=== PATIENT | male | born 1995 | race African-American/Black ===

== ENCOUNTER 2017-03-05 12:59 | Emergency (ER) | payer SELFPAY ==
[~2017-03-05] VITALS: Ht 185.4 cm; Wt 63.5 kg
[~2017-03-05 12:59] MED LIST: NAPR500T PO; PROAIR HFA8.5 GM INH
[2017-03-05 13:10] VITALS: BP 112/66
[2017-03-05] MEDS ORDERED: AZIT250T PO (13:24)
[2017-03-05] MEDS ORDERED: PROAIR HFA8.5 GM INH (13:24)
[2017-03-05] MEDS ORDERED: PRED20TA PO (13:24)
--- NOTE | 2017-03-05 13:24 | PHYS DOC ---
Past Medical History Past Medical History: No Pertinent History Past Surgical History: No Surgical History Alcohol Use: Occasionally Drug Use: Marijuana, Other Adult General Chief Complaint Chief Complaint: COUGH HPI HPI Patient is a 21 year old male presents emergency Department stating he's had a cough and some chest discomfort when taking a deep breath in next healing. He states this is been going on for the last 3 days. He states he has not taken anything for the pain and discomfort. He states he does have a cough this nonproductive. He also states that he has a history of smoking. He states approximately 2 days ago he had a fever at home although is afebrile this time. Patient denies any nasal drainage or discharge denies any sinus pressure. Review of Systems Review of Systems Constitutional: hx fever Eyes: Denies change in visual acuity, redness, or eye pain [] HENT: Denies nasal congestion or sore throat [] Respiratory: cough with shortness of breath [] Cardiovascular: No additional information not addressed in HPI [] GI: Denies abdominal pain, nausea, vomiting, bloody stools or diarrhea [] : Denies dysuria or hematuria [] Musculoskeletal: Denies back pain or joint pain [] Integument: Denies rash or skin lesions [] Neurologic: Denies headache, focal weakness or sensory changes [] Endocrine: Denies polyuria or polydipsia [] Allergies Allergies Allergies Coded Allergies Type Severity Reaction Last Updated Verified No Known Drug Allergies 02/28/15 No Physical Exam Physical Exam Constitutional: Well developed, well nourished, no acute distress, non-toxic appearance. [] HENT: Normocephalic, atraumatic, bilateral external ears normal, oropharynx moist, no oral exudates, nose normal. Bilateral tympanic membranes appear to be normal. Throat with redness no erythematous no exudate noted. Eyes: PERRLA, EOMI, conjunctiva normal, no discharge. [] Neck: Normal range of motion, no tenderness, supple, no stridor. [] Cardiovascular:Heart rate regular rhythm, no murmur [] Lungs & Thorax: Bilateral breath sounds clear to auscultation [] Skin: Warm, dry, no erythema, no rash. [] Back: No tenderness Extremities: No tenderness, no cyanosis, no clubbing, ROM intact, no edema. [] Neurologic: Alert and oriented X 3, normal motor function, normal sensory function, no focal deficits noted. [] Psychologic: Affect normal, judgement normal, mood normal. [] EKG EKG [] Radiology/Procedures Radiology/Procedures [] Course & Med Decision Making Course & Med Decision Making Pertinent Labs and Imaging studies reviewed. (See chart for details) Patient will be discharged home in stable condition. He'll be provided with Zithromax, prednisone and an albuterol inhaler prescription. Recommended patient stop smoking. Patient will be discharged home in stable condition signs and symptoms to return back to emergency department as been provided. Patient agrees with discharge instructions treatment regimens and follow-up recommendations. [] Dragon Disclaimer Dragon Disclaimer This electronic medical record was generated, in whole or in part, using a voice recognition dictation system. Departure Departure Impression: Primary Impression: Bronchitis Disposition: HOME, SELF-CARE Condition: STABLE Referrals: NO PCP (PCP) Patient Instructions: Acute Bronchitis, [id number], Smoking Cessation Additional Instructions: Activity as tolerated Medication as prescribed Tylenol or Ibuprofen for fever, chills or generalized boy aches and discomfort Warm moist packs to the chest wall area Stop smoking Followup with primary care provider in 3-5 days Return to emergency department as needed for signs and symptoms that become worse. Scripts Azithromycin (ZITHROMAX) 250 Mg Tablet 250 MG PO DAILY for ANTI-BIOTIC, #6 TAB 0 Refills Take 2 tablets today then 1 tablet daily until gone Prov: RIGOBERTO VASQUEZ APRN 03/05/17 Albuterol Sulfate (PROAIR HFA INHALER) 8.5 Gm Hfa.aer.ad 1 PUFF INH PRN Q6HRS Y for SHORTNESS OF BREATH, #1 INHALER 0 Refills Prov: RIGOBERTO VASQUEZ APRN 03/05/17 Prednisone (PREDNISONE) 20 Mg Tablet 40 MG PO DAILY for 7 Days, #14 TAB Prov: RIGOBERTO VASQUEZ APRN 03/05/17 RIGOBERTO VASQUEZ APRN Mar 05, 2017 13:24
== END 2017-03-05 13:36 | disposition home or self-care (01) ==
LOC: ER 12:59
DX: J40 Bronchitis, not specified as acute or chronic (principal); R07.89 Other chest pain; F12.10 Cannabis abuse, uncomplicated; F17.200 Nicotine dependence, unspecified, uncomplicated
CPT/HCPCS: 99283

== ENCOUNTER 2017-03-12 03:56 | Emergency (ER) | payer SELFPAY ==
[~2017-03-12] VITALS: Ht 182.9 cm; Wt 63.5 kg
[~2017-03-12 03:56] MED LIST changes: +AZIT250T PO; +PRED20TA PO
[2017-03-12 04:05] VITALS: BP 141/86
--- NOTE | 2017-03-12 04:56 | PHYS DOC ---
Past Medical History Past Medical History: Bronchitis Past Surgical History: No Surgical History Alcohol Use: None Drug Use: None Adult General Chief Complaint Chief Complaint: SHORTNESS OF BREATH HPI HPI Patient is a 21 year old gentleman presents to the ER today secondary to coughing. Patient was recently diagnosed with bronchitis finished a full course of Zithromax and he reports he still coughing. Patient has no fevers shakes chills. Patient reports he is short of breath with exertion. Patient reports some hemoptysis. Patient has a nausea vomiting diarrhea or abdominal pain. Patient has no past medical history. No history of hypertension diabetes liver longer kidney problems. Patient had no surgeries. Patient does smoke occasionally drinks and no drugs. Exam was unremarkable. Lungs were clear no wheezing rales or rhonchi. Oropharynx is clear without any exudates. His TMs were clear without any erythema. Chest x-ray was clear no infiltrates or effusions. Assessment and plan Plan 21-year-old gentleman with recent diagnosis of bronchitis status post full course of Zithromax still complaining of shortness of breath and cough. Patient' s chest x-rays unremarkable. I did had a long discussion with the mother and patient regarding the progress and course of bronchitis. I discussed with him that he likely will continue to cough even after the antibiotics is resolved if he did have a bacterial pneumonia. Patient does not have any wheezing. I don't think the patient will benefit from any further courses of antibiotics or albuterol. Charged home in stable condition with instructions to follow-up with his PCP or clinic for reevaluation if need be. I discussed with the patient cessation of tobacco. Review of Systems Review of Systems Constitutional: Denies fever or chills [] Eyes: Denies change in visual acuity, redness, or eye pain [] All other review systems are negative except as documented in the history of present illness portion. Allergies Allergies Allergies Coded Allergies Type Severity Reaction Last Updated Verified No Known Drug Allergies 02/28/15 No Physical Exam Physical Exam Constitutional: Well developed, well nourished, no acute distress, non-toxic appearance. [] HENT: Normocephalic, atraumatic, bilateral external ears normal, oropharynx moist, no oral exudates, nose normal. [] Eyes: PERRLA, EOMI, conjunctiva normal, no discharge. [] Neck: Normal range of motion, no tenderness, supple, no stridor. [] Cardiovascular:Heart rate regular rhythm, no murmur [] Lungs & Thorax: Bilateral breath sounds clear to auscultation [] Abdomen: Bowel sounds normal, soft, no tenderness, no masses, no pulsatile masses. [] Skin: Warm, dry, no erythema, no rash. [] Back: No tenderness, no CVA tenderness. [] Extremities: No tenderness, no cyanosis, no clubbing, ROM intact, no edema. [] Neurologic: Alert and oriented X 3, normal motor function, normal sensory function, no focal deficits noted. [] Psychologic: Affect normal, judgement normal, mood normal. [] Current Patient Data Vital Signs Vital Signs Date Time Temp Pulse Resp B/P (MAP) Pulse Ox O2 Delivery O2 Flow Rate FiO2 03/12/17 04:05 98.3 60 18 141/86 (104) 98 Room Air 98.3 EKG EKG [] Radiology/Procedures Radiology/Procedures [] Course & Med Decision Making Course & Med Decision Making Pertinent Labs and Imaging studies reviewed. (See chart for details) [] Dragon Disclaimer Dragon Disclaimer This electronic medical record was generated, in whole or in part, using a voice recognition dictation system. Departure Departure Impression: Primary Impression: Cough Disposition: 01 HOME, SELF-CARE Condition: IMPROVED Referrals: NO PCP (PCP) Patient Instructions: Cough, Adult, Smoking Cessation LAUREN SENA MD Mar 12, 2017 04:56
--- NOTE | 2017-03-12 07:34 | RAD ---
EXAM: Chest 2 views. HISTORY: Cough. COMPARISON: None. FINDINGS: Frontal and lateral views of the chest are obtained. A mild perihilar left upper lobe infiltrate is suspected on the left. There is no pneumothorax or pleural effusion. The heart is not enlarged. IMPRESSION: 1. Suspect a mild left upper lobe infiltrate. Correlate for atypical pneumonia.
== END 2017-03-12 05:00 | disposition home or self-care (01) ==
LOC: ER 03:56
DX: R05 Cough (principal); R06.02 Shortness of breath; R04.2 Hemoptysis; F17.200 Nicotine dependence, unspecified, uncomplicated
CPT/HCPCS: 71020; 99284-25

== ENCOUNTER 2018-01-13 07:54 | Emergency (ER) | payer SELFPAY ==
[2018-01-13] MEDS: IV NORMAL SALINE 1000ML BAG 1,000 ML IV (08:26)
[2018-01-13] MEDS: MORPHINE SULFATE 10 MG/ML VIAL. IV ×2 (08:26→10:35)
[2018-01-13] MEDS: ONDANSETRON PF 4 MG/2 ML VIAL. IV (08:26)
[2018-01-13] MEDS: KETOROLAC 30 MG/ML INJ. IV (08:27)
[2018-01-13 08:28] LABS: BILIRUBIN,URINE NEGATIVE (NEG); CLARITY,URINE CLEAR; COLOR,URINE YELLOW; GLUCOSE,URINE NEGATIVE (NEG); NITRITE,URINE NEGATIVE (NEG); PROTEIN,URINE NEGATIVE (NEG-TRACE); UROBILINOGEN,URINE 0.2 mg/dL (0.2 mg/dL)
[2018-01-13 08:34] LABS: ADD MAN DIFF? NO
[2018-01-13 08:35] LABS: AMPHETAMINE/METHAMPHETAMINE NEG (NEG); BARBITURATES NEG (NEG); BENZODIAZEPINES NEG (NEG); CANNABINOIDS POS (NEG); COCAINE NEG (NEG); ETHANOL, URINE NEG (NEG); METHADONE NEG (NEG); OPIATES NEG (NEG); PHENCYCLIDINE NEG (NEG)
[2018-01-13 08:36] LABS: BASO # 0.1 x10^3/uL (0.0-0.2); BASO % 1 % (0-3); EOS # 0.5 x10^3/uL (0.0-0.7); EOS % 9 % (0-3); HEMATOCRIT 42.8 % (39.0-53.0); HEMOGLOBIN 13.5 g/dL (13.0-17.5); LYMPH # 2.3 x10^3/uL (1.0-4.8); LYMPH % 43 % (24-48); MEAN CORPUSCULAR HEMOGLOBIN 24 pg (25-35); MEAN CORPUSCULAR HGB CONC 31 g/dL (31-37); MEAN CORPUSCULAR VOLUME 77 fL (79-100); MONO # 0.5 x10^3/uL (0.0-1.1); MONO % 10 % (0-9); NEUT # 1.9 x10^3uL (1.8-7.7); NEUT % 37 % (31-73); PLATELET COUNT 148 x10^3/uL (140-400); WHITE BLOOD COUNT 5.3 x10^3/uL (4.0-11.0)
[2018-01-13 08:45] LABS: RBC,URINE >40 /HPF (0-2)
[2018-01-13 08:46] LABS: ANION GAP 6 (6-14); BACTERIA,URINE FEW /HPF (0-FEW); BLOOD UREA NITROGEN 12 mg/dL (8-26); BUN/CREATININE RATIO 11 (6-20); CALCIUM 8.9 mg/dL (8.5-10.1); CARBON DIOXIDE 30 mmol/L (21-32); CHLORIDE 105 mmol/L (98-107); CREATININE 1.1 mg/dL (0.7-1.3); GFR 101.3; GLUCOSE 110 mg/dL (70-99); POTASSIUM 3.8 mmol/L (3.5-5.1); SODIUM 141 mmol/L (136-145); WBC,URINE OCC /HPF (0-4)
[2018-01-13 08:47] LABS: ETHANOL < 10 mg/dL (0-10)
[2018-01-13 08:53] LABS: ALBUMIN 3.9 g/dL (3.4-5.0); ALK PHOS 114 U/L (46-116); ALT (SGPT) 17 U/L (16-63); AST (SGOT) 23 U/L (15-37); LIPASE 158 U/L (73-393); TOTAL BILIRUBIN 0.5 mg/dL (0.2-1.0); TOTAL PROTEIN 7.7 g/dL (6.4-8.2)
[2018-01-13 09:37] LABS: FECAL OB PT POSITIVE (NEG); NEG OBC FOB NEG; POS OBC FOB POS
[2018-01-13] MEDS: TAMSULOSIN 0.4 MG CAP.ER.24H. PO (10:34)
[2018-01-13] MEDS: oxyCODONE/APAP 5/325 1 TAB TABLET PO (11:09)
== END 2018-01-13 11:18 | disposition home or self-care (01) ==
LOC: ER 07:54
DX: N13.2 Hydronephrosis with renal and ureteral calculous obstruction (principal); F12.10 Cannabis abuse, uncomplicated
CPT/HCPCS: 36415; 74176; 80053; 80307; 81001; 82274; 83690; 85025; 87491; 87591; 96361; 96374; 96375; 96376; 99285-25; G0480; J1885; J2270; J2405; J7030

== ENCOUNTER 2018-05-02 09:17 | Emergency (ER) | payer SELFPAY | END 2018-05-02 10:50 | disposition home or self-care (01) | LOC: ER 10:50 | DX: B86 Scabies (principal) | CPT/HCPCS: 99282 ==

== ENCOUNTER 2019-09-13 07:42 | Emergency (ER) | payer SELFPAY ==
[~2019-09-13] VITALS: Ht 185.4 cm; Wt 63.5 kg
[~2019-09-13 07:42] MED LIST changes: +ALBU2.5V8 INH; +CIPR500T94 PO; +NAPR-514 PO; +NAPR-683 PO; -NAPR500T PO; +ONDA4TAB10 SL; +OXYC1TAB15 PO; +PERM60CR12 TP; -PROAIR HFA8.5 GM INH; +TAMS0.4C97 PO
[2019-09-13 07:50] VITALS: BP 123/59
[2019-09-13] MEDS ORDERED: PENI500T PO (08:04)
[2019-09-13] MEDS ORDERED: ACET-704 PO (08:04)
[2019-09-13] MEDS ORDERED: LIDO15SO2 TOP (08:04)
--- NOTE | 2019-09-13 08:05 | PHYS DOC ---
Past Medical History Past Medical History: No Pertinent History, Bronchitis Past Surgical History: No Surgical History Alcohol Use: None Drug Use: Marijuana Adult General Chief Complaint Chief Complaint: DENTAL PROBLEM HPI HPI Patient is a 23-year-old male who presents with complaint of right lower dental pain that has been present for approximately week. Patient has been trying to get in to see the dentist but he has not been able to. Patient states the pain is gotten a lot worse over the last 24 hours and he stayed up most of the night because of the pain.[] Review of Systems Review of Systems Constitutional: Denies fever or chills [] HENT: Positive dental pain[] Respiratory: Complains of cough without shortness of breath [] Cardiovascular: No additional information not addressed in HPI [] Allergies Allergies Allergies Coded Allergies Type Severity Reaction Last Updated Verified No Known Drug Allergies 02/28/15 No Physical Exam Physical Exam Constitutional: Well developed, well nourished, no acute distress, non-toxic appearance. [] HENT: Normocephalic, atraumatic, dentition demonstrates caries, predominantly on the right side with the right sided lower premolar with significant caries and erosion into the pulp. [] Cardiovascular:Heart rate regular rhythm, no murmur [] Lungs & Thorax: Bilateral breath sounds clear to auscultation [] Current Patient Data Vital Signs Vital Signs Date Time Temp Pulse Resp B/P (MAP) Pulse Ox O2 Delivery O2 Flow Rate FiO2 09/13/19 07:50 97.4 74 16 123/59 (80) 97 Room Air 97.4 EKG EKG [] Radiology/Procedures Radiology/Procedures [] Course & Med Decision Making Course & Med Decision Making Pertinent Labs and Imaging studies reviewed. (See chart for details) [] Dragon Disclaimer Dragon Disclaimer This electronic medical record was generated, in whole or in part, using a voice recognition dictation system. Departure Departure Impression: Primary Impression: Pain due to dental caries Disposition: HOME, SELF-CARE Condition: STABLE Referrals: NO PCP (PCP) Patient Instructions: Dental Caries, Dental Pain Scripts Lidocaine HCl (Lidocaine HCl Viscous) 15 Ml Solution 1 ML TOP Q2HR PRN for tooth pain, #100 ML Prov: LIZ RUEDA Jr. DO 09/13/19 Penicillin V Potassium (PENICILLIN V POTASSIUM) 500 Mg Tablet 1 TAB PO QID, #40 TAB Prov: LIZ RUEDA Jr. DO 09/13/19 Acetaminophen With Codeine (TYLENOL WITH CODEINE #3 TABLET) 1 Each Tablet 1-2 TAB PO PRN Q4-6HRS PRN for pain MDD 6 Tablet(s), #15 TAB 0 Refills Prov: LIZ RUEDA Jr. DO 09/13/19 LIZ RUEDA Jr. DO Sep 13, 2019 08:05
== END 2019-09-13 08:10 | disposition home or self-care (01) ==
LOC: ER 07:42
DX: K02.9 Dental caries, unspecified (principal); K08.89 Other specified disorders of teeth and supporting structures; F12.90 Cannabis use, unspecified, uncomplicated
CPT/HCPCS: 99283

== ENCOUNTER 2019-09-27 09:20 | Emergency (ER) | payer SELFPAY ==
[~2019-09-27] VITALS: Ht 185.4 cm; Wt 63.5 kg
[~2019-09-27 09:20] MED LIST changes: +ACET-704 PO; +LIDO15SO2 TOP; +PENI500T PO
[2019-09-27 09:41] VITALS: BP 118/59
--- NOTE | 2019-09-27 09:48 | PHYS DOC ---
Past Medical History Past Medical History: No Pertinent History, Bronchitis (RIGOBERTO REYES APRN) Past Surgical History: No Surgical History (RIGOBERTO REYES APRN) Alcohol Use: None Drug Use: Marijuana (RIGOBERTO REYES APRN) Adult General Chief Complaint Chief Complaint: COUGH HPI HPI Patient is a 23 year old male who presents with cough 3 weeks. Pain in the chest with coughing or taking deep breath. Patient has been on penicillin and another antibiotic of which she can't remember for dental infection for the last 2 weeks. Patient states when he is up and walking he is getting short of breath. Patient's mother is adamant that we do an EKG because his grandmother and small cousin and uncle all had heart attacks. I told mother that is very unlikely does have any heart problems but mother is very adamant that we do this. Patient rates his pain a 7 out of 10 when he is coughing. He does have a temp of 100.5. He does have history of bronchitis and smoking marijuana. Patient states he is still taking antibiotics at this time from the dentist. (RIGOBERTO REYES APRN) Review of Systems Review of Systems Constitutional: fever or chills [] HENT: nasal congestion or denies sore throat [] Respiratory: cough or shortness of breath [] All other systems were reviewed and found to be within normal limits, except as documented in this note. (RIGOBERTO REYES APRN) Current Medications Current Medications Current Medications Medications (Trade) Dose Ordered Sig/Christy Start Time Stop Time Status Last Admin Dose Admin Acetaminophen (Tylenol) 650 mg 1X ONCE 09/27/19 10:00 09/27/19 10:01 DC 09/27/19 10:16 650 MG Prednisone (Prednisone) 50 mg 1X ONCE 09/27/19 10:00 09/27/19 10:01 DC 09/27/19 10:15 50 MG (JOSÉ MANUEL CARTWRIGHT DO) Allergies Allergies Allergies Coded Allergies Type Severity Reaction Last Updated Verified No Known Drug Allergies 02/28/15 No (JOSÉ MANUEL CARTWRIGHT DO) Physical Exam Physical Exam Constitutional: Well developed, well nourished, no acute distress, non-toxic appearance. [] HENT: Normocephalic, atraumatic, bilateral external ears normal, oropharynx moist, no oral exudates, nose normal. Throat silas without exudates. [] Eyes: PERRLA, EOMI, conjunctiva normal, no discharge. [] Neck: Normal range of motion, no tenderness, supple, no stridor. [] Cardiovascular:Heart rate regular rhythm, no murmur [] Lungs & Thorax: Bilateral breath sounds clear to auscultation [] Abdomen: Bowel sounds normal, soft, no tenderness, no masses, no pulsatile masses. [] Skin: Warm, dry, no erythema, no rash. [] Back: No tenderness, no CVA tenderness. [] Extremities: No tenderness, no cyanosis, no clubbing, ROM intact, no edema. [] Neurologic: Alert and oriented X 3, normal motor function, normal sensory function, no focal deficits noted. [] Psychologic: Affect normal, judgement normal, mood normal. [] (RIGOBERTO REYES APRN) Current Patient Data Vital Signs Vital Signs Date Time Temp Pulse Resp B/P (MAP) Pulse Ox O2 Delivery O2 Flow Rate FiO2 09/27/19 09:41 100.5 79 16 118/59 (78) 100 Room Air 100.5 (JOSÉ MANUEL CARTWRIGHT DO) Lab Values Laboratory Tests Test 09/27/19 09:37 Influenza Type A Antigen Negative (NEGATIVE) Influenza Type B Antigen Negative (NEGATIVE) (JOSÉ MANUEL CARTWRIGHT DO) Lab Values Laboratory Tests Test 09/27/19 09:37 Influenza Type A Antigen Negative (NEGATIVE) Influenza Type B Antigen Negative (NEGATIVE) (RIGOBERTO REYES APRN) EKG EKG Sinus Rhythm with RBBB. No STEMI[] Interpretation Time: [address] Cartwright (RIGOBERTO REYES APRN) Radiology/Procedures Radiology/Procedures [] (RIGOBERTO REYES APRN) Impressions: [facility] [address] [place] [address] IMAGING REPORT Signed PATIENT: MIKE BARNARD ACCOUNT: [id number] : 1995 LOCATION: ER AGE: 23 SEX: M EXAM STATUS: REG ER ORD. PHYSICIAN: RIGOBERTO REYES APRN REASON: cough, SOA x1 month PROCEDURE: CHEST PA & LATERAL CHEST PA LATERAL History: Cough, shortness of breath for one month. FINDINGS: The cardiomediastinal silhouette is not enlarged. No evidence of pneumothorax, pleural effusion or focal airspace opacity. Bones appear intact. IMPRESSION: No evidence of consolidating infiltrate. Electronically signed by: José Manuel Hall MD (09/27/2019 10:08 AM) [facility] DICTATED and SIGNED BY: JOSÉ MANUEL HALL MD DATE: 09/27/19 1008 (RIGOBERTO REYES APRN) Course & Med Decision Making Course & Med Decision Making Lungs are clear to auscultation all lobes. Vital Signs are within normal limits except he is febrile. Patient states he only been taking ibuprofen for his symptoms. Speaks in full clear sentences. Skin pink warm and dry. Mucous membranes moist. Ambulatory with a steady gait. No extremity edema. Patient has not followed up with his primary care physician. Patient is educated and mother is educated that patient needs to follow up with primary care doctor and if she wants further testing for his heart that she needs to follow-up with his primary care doctor. Patient states that he will become short of air when he is up and moving since his cough has began. Alert and oriented. Patient states he will get dizzy at times when she when he is coughing. Patient denies nausea, vomiting, abdominal pain, headache, syncope, blurred vision or visual changes, numbness or tingling, palpitations. Patient states that he does have nasal congestion that runs down the back of his throat. Patient is educated that is running down the back of his throat causing the coughing problem himself up at night also to help this. PERC negative. (RIGOBERTO REYES APRN) Dragon Disclaimer Dragon Disclaimer This electronic medical record was generated, in whole or in part, using a voice recognition dictation system. (RIGOBERTO REYES APRN) Departure Departure Impression: Primary Impression: Cough Disposition: 01 HOME, SELF-CARE Condition: STABLE Referrals: NO PCP (PCP) Patient Instructions: Cough, Adult Additional Instructions: Take all medications as prescribed. Follow-up with your primary care provider. Scripts Albuterol Sulfate (PROAIR HFA INHALER) 8.5 Gm Hfa.aer.ad 1 PUFF INH PRN Q6HRS PRN for SHORTNESS OF BREATH, #1 INHALER 0 Refills Prov: KRAIGRIGOBERTOPATTIE Aaron APRN 09/27/19 Benzonatate (TESSALON PERLE) 100 Mg Capsule 1 CAP PO TID, #30 CAP Prov: RIGOBERTO REYES APRN 09/27/19 Methylprednisolone (MEDROL) 4 Mg Tab.ds.pk 1 PKG PO UD, #1 PKG Prov: RIGOBERTO REYES APRN 09/27/19 Attending Signature Attending Signature I have reviewed the PA/BACK END DEVELOPER's note and plan of care. I was available for consultation as needed during the patient's visit in the emergency department. I agree with the clinical impression, plan, and disposition. (JOSÉ MANUEL CARTWRIGHT DO) RIGOBERTO REYES APRN Sep 27, 2019 09:48 JOSÉ MANUEL CARTWRIGHT DO Sep 28, 2019 07:47
[2019-09-27] MEDS ORDERED: ACETAMINOPHEN 325 MG TABLET. PO ONE (10:00)
[2019-09-27] MEDS ORDERED: predniSONE 10 MG TABLET PO ONE (10:00)
[2019-09-27 10:01] LABS: INFLUENZA A PATIENT NEGATIVE (NEGATIVE); INFLUENZA B PATIENT NEGATIVE (NEGATIVE)
--- NOTE | 2019-09-27 10:11 | RAD ---
CHEST PA LATERAL History: Cough, shortness of breath for one month. FINDINGS: The cardiomediastinal silhouette is not enlarged. No evidence of pneumothorax, pleural effusion or focal airspace opacity. Bones appear intact. IMPRESSION: No evidence of consolidating infiltrate. Electronically signed by: Jsoé Manuel Hall MD (09/27/2019 10:08 AM) [facility]
[2019-09-27] MEDS ORDERED: METH4TAB2 PO (10:15)
[2019-09-27] MEDS ORDERED: ALBU2.5V8 INH (10:15)
[2019-09-27] MEDS ORDERED: BENZ100C PO (10:15)
--- NOTE | 2019-09-28 07:36 | EKG ---
[facility] [address] [place] [address] Test Date: 2019-09-27 Test Time: 09:50:25 Pat Name: MIKE BARNARD Department: Room: Gender: M Clinical Staff Rn: : 1995 Requested By: RIGOBERTO REYES Order Number: [id number] Reading MD: Measurements Intervals Nora Rate: 71 P: 49 GA: 232 QRS: 79 QRSD: 94 T: 62 QT: 360 QTc: 396 Interpretive Statements SINUS RHYTHM PROLONGED GA INTERVAL S1,S2,S3 PATTERN INCOMPLETE RIGHT BUNDLE BRANCH BLOCK ABNORMAL ECG RI6.01 No previous ECG available for comparison
== END 2019-09-27 10:21 | disposition home or self-care (01) ==
LOC: ER 09:20
DX: R05 Cough (principal); R06.02 Shortness of breath; R07.89 Other chest pain; J42 Unspecified chronic bronchitis; F12.90 Cannabis use, unspecified, uncomplicated; Z79.899 Other long term (current) drug therapy
CPT/HCPCS: 71046; 87804; 93005; 99285; J7512

== ENCOUNTER 2019-10-11 21:19 | Emergency (ER) | payer BC ==
[~2019-10-11] VITALS: Ht 185.4 cm; Wt 63.5 kg
[~2019-10-11 21:19] MED LIST changes: +BENZ100C PO; +METH4TAB2 PO
--- NOTE | 2019-10-11 22:20 | PHYS DOC ---
Past Medical History Past Medical History: No Pertinent History, Bronchitis Past Surgical History: No Surgical History Alcohol Use: None Drug Use: Marijuana Adult General Chief Complaint Chief Complaint: MULTIPLE COMPLAINTS HPI HPI 23-year-old male presents to the emergency department multiple complaints including shortness of breath, chest pain and decreased level oxygen. Family at bedside states they've been playing drinking games prior to his arrival. Patient is clearly intoxicated. Sleeping on examination however will arouse to painful stimuli. Family states he's had recent antibiotic therapy secondary to concern for possible infection, he does have underlying history of asthma as well as family history of heart disease. Patient unable to provide any particular information with regards to why he is here at this time information is obtained from patient's family. All other ROS negative unless documented in HPI Review of Systems Review of Systems See Above Current Medications Current Medications Current Medications Medications (Trade) Dose Ordered Sig/Christy Start Time Stop Time Status Last Admin Dose Admin Sodium Chloride 1,000 ml @ 1,000 mls/hr 1X ONCE 10/11/19 23:15 10/12/19 00:14 10/11/19 23:15 1,000 MLS/HR Allergies Allergies Allergies Coded Allergies Type Severity Reaction Last Updated Verified No Known Drug Allergies 02/28/15 No Physical Exam Physical Exam See Above Constitutional: Well developed, well nourished, no acute distress. [] HENT: Normocephalic, atraumatic, bilateral external ears normal, oropharynx moist, no oral exudates, nose normal. [] Eyes: PERRLA - slow to react, EOMI, conjunctiva normal, no discharge. [] Neck: Normal range of motion, no tenderness, supple, no stridor. [] Cardiovascular:Heart rate regular rhythm, no murmur [] Lungs & Thorax: Bilateral breath sounds clear to auscultation [] Abdomen: Bowel sounds normal, soft, no tenderness, no masses, no pulsatile masses. [] Skin: Warm, dry, no erythema, no rash. [] Back: No tenderness, no CVA tenderness. [] Extremities: No tenderness, no cyanosis, no clubbing, ROM intact, no edema. [] Neurologic: Altered mental status, no focal deficits noted. [] Psychologic: Affect normal, judgement normal, mood normal. [] Current Patient Data Vital Signs Vital Signs Date Time Temp Pulse Resp B/P (MAP) Pulse Ox O2 Delivery O2 Flow Rate FiO2 10/11/19 23:03 60 18 91/50 (64) 96 Room Air 10/11/19 21:46 97.3 97.3 Lab Values Laboratory Tests Test 10/11/19 22:31 10/11/19 22:55 10/11/19 23:48 O2 Saturation 98 % (92-99) Arterial Blood pH 7.45 (7.35-7.45) Arterial Blood pCO2 at Patient Temp 35 mmHg (35-46) Arterial Blood pO2 at Patient Temp 106 mmHg (85-108) Arterial Blood HCO3 23 mmol/L (21-28) Arterial Blood Base Excess 0 mmol/L (-3-3) FiO2 21 White Blood Count 4.5 x10^3/uL (4.0-11.0) Red Blood Count 4.91 x10^6/uL (4.30-5.70) Hemoglobin 11.7 g/dL (13.0-17.5) L Hematocrit 36.0 % (39.0-53.0) L Mean Corpuscular Volume 73 fL (79-100) L Mean Corpuscular Hemoglobin 24 pg (25-35) L Mean Corpuscular Hemoglobin Concent 33 g/dL (31-37) Red Cell Distribution Width 15.9 % (11.5-14.5) H Platelet Count 170 x10^3/uL (140-400) Neutrophils (%) (Auto) 32 % (31-73) Lymphocytes (%) (Auto) 59 % (24-48) H Monocytes (%) (Auto) 6 % (0-9) Eosinophils (%) (Auto) 3 % (0-3) Basophils (%) (Auto) 1 % (0-3) Neutrophils # (Auto) 1.4 x10^3/uL (1.8-7.7) L Lymphocytes # (Auto) 2.7 x10^3/uL (1.0-4.8) Monocytes # (Auto) 0.3 x10^3/uL (0.0-1.1) Eosinophils # (Auto) 0.1 x10^3/uL (0.0-0.7) Basophils # (Auto) 0.0 x10^3/uL (0.0-0.2) Segmented Neutrophils % 32 % (35-66) L Band Neutrophils % 1 % (0-9) Lymphocytes % 57 % (24-48) H Monocytes % 7 % (0-10) Eosinophils % 3 % (0-5) Platelet Estimate Adequate (ADEQUATE) Hypochromasia Slight Microcytosis Mod Ovalocytes Few Schistocytes Few D-Dimer (Dawn) 0.31 ug/mlFEU (0.00-0.50) Sodium Level 143 mmol/L (136-145) Potassium Level 3.1 mmol/L (3.5-5.1) L Chloride Level 106 mmol/L (98-107) Carbon Dioxide Level 26 mmol/L (21-32) Anion Gap 11 (6-14) Blood Urea Nitrogen 13 mg/dL (8-26) Creatinine 0.8 mg/dL (0.7-1.3) Estimated GFR (Cockcroft-Gault) 145.0 BUN/Creatinine Ratio 16 (6-20) Glucose Level 112 mg/dL (70-99) H Calcium Level 8.6 mg/dL (8.5-10.1) Total Bilirubin 0.5 mg/dL (0.2-1.0) Aspartate Amino Transferase (AST) 24 U/L (15-37) Alanine Aminotransferase (ALT) 11 U/L (16-63) L Alkaline Phosphatase 104 U/L (46-116) Ammonia 55 mcmol/L (11-34) H Troponin I Quantitative < 0.017 ng/mL (0.000-0.055) Total Protein 6.9 g/dL (6.4-8.2) Albumin 3.8 g/dL (3.4-5.0) Albumin/Globulin Ratio 1.2 (1.0-1.7) Salicylates Level < 2.8 mg/dL (2.8-20.0) L Salicylate Last Dose Date Salicylate Last Dose Time Acetaminophen Level < 2 mcg/ml (10-30) L Acetaminophen Last Dose Date Acetaminophen Last Dose Time Ethyl Alcohol Level 137 mg/dL (0-10) H Urine Collection Type Unknown Urine Color Yellow Urine Clarity Cloudy Urine pH 7.0 Urine Specific [place] 1.010 Urine Protein Negative mg/dL (NEG-TRACE) Urine Glucose (UA) Negative mg/dL (NEG) Urine Ketones (Stick) Negative mg/dL (NEG) Urine Blood Negative (NEG) Urine Nitrite Negative (NEG) Urine Bilirubin Negative (NEG) Urine Urobilinogen Dipstick 0.2 mg/dL (0.2 mg/dL) Urine Leukocyte Esterase Negative (NEG) Urine RBC 1-2 /HPF (0-2) Urine WBC Occ /HPF (0-4) Urine Squamous Epithelial Cells Occ /LPF Urine Bacteria 0 /HPF (0-FEW) Urine Mucus Slight /LPF Urine Opiates Screen Neg (NEG) Urine Methadone Screen Neg (NEG) Urine Barbiturates Neg (NEG) Urine Phencyclidine Screen Neg (NEG) Urine Amphetamine/Methamphetamine Neg (NEG) Urine Benzodiazepines Screen Neg (NEG) Urine Cocaine Screen Neg (NEG) Urine Cannabinoids Screen Pos (NEG) Urine Ethyl Alcohol Pos (NEG) Laboratory Tests 10/11/19 22:55 Laboratory Tests 10/11/19 22:55 EKG EKG 80 reviewed, interpreted time 2133, normal axis and heart rate 65, no STEMI[] Radiology/Procedures Radiology/Procedures [facility] [address] [place] [address] IMAGING REPORT Signed PATIENT: MIKE BARNARD ACCOUNT: [id number] : 1995 LOCATION: ER AGE: 23 SEX: M EXAM STATUS: PRE ER ORD. PHYSICIAN: CATHI SCHNEIDER MD REASON: altered mental status PROCEDURE: CT HEAD WO CONTRAST CT HEAD WO CONTRAST History: Altered mental status Comparison: None. Technique: Noncontrast CT imaging was performed of the head. Coronal reconstruction was performed. Exposure: One or more of the following individualized dose reduction techniques were utilized for this examination: 1. Automated exposure control 2. Adjustment of the mA and/or kV according to patient size 3. Use of iterative reconstruction technique. Findings: No intracranial hemorrhage. No mass effect. No hydrocephalus. Extra-axial spaces are unremarkable. Imaged orbits are unremarkable. Right sphenoid sinus mucous retention cyst or polyp. Mastoid air cells are clear. No acute calvarial fracture. Impression: 1. No acute intracranial abnormality. Electronically signed by: Russell Sanchez DO (10/11/2019 10:19 PM) [id number] DICTATED and SIGNED BY: RUSSELL SANCHEZ DO DATE: 10/11/192218 [] Course & Med Decision Making Course & Med Decision Making Pertinent Labs and Imaging studies reviewed. (See chart for details) []23-year-old male presents to the emergency department multiple complaints including shortness of breath, chest pain and decreased level oxygen. Family at bedside states they've been playing drinking games prior to his arrival. Patient is clearly intoxicated. Sleeping on examination however will arouse to painful stimuli. Family states he's had recent antibiotic therapy secondary to concern for possible infection, he does have underlying history of asthma as well as family history of heart disease. Patient unable to provide any particular information with regards to why he is here at this time information is obtained from patient's family. Labs reviewed Potassium 3.0 - replaced CT head negative for acute process UDS (+ THC, ETOH) ABG, ddimer within normal limits Discussed with mom - recommend dc home Return precautions provided Dragon Disclaimer Dragon Disclaimer This electronic medical record was generated, in whole or in part, using a voice recognition dictation system. Departure Departure Impression: Primary Impression: Alcohol intoxication Additional Impression: Hypokalemia Disposition: 01 HOME, SELF-CARE Condition: IMPROVED Referrals: NO PCP (PCP) Patient Instructions: Alcohol Intoxication, [id number], Hypokalemia Additional Instructions: Recommend follow up with PCP 3 - 5 days Return to the ER with worsening symptoms, intractable pain, fever, altered mental status Tylenol/Motrin as needed for pain CT head negative Labs show low potassium - replaced in ER Problem Qualifiers Primary Impression: Alcohol intoxication Complication of substance-induced condition: uncomplicated Qualified Codes: F10.920 - Alcohol use, unspecified with intoxication, uncomplicated CATHI SCHNEIDER MD Oct 11, 2019 22:20
[2019-10-11 22:31] LABS: BASE EXCESS ABG 0 mmol/L (-3-3); HCO3 ABG 23 mmol/L (21-28); PCO2 ABG 35 mmHg (35-46); PO2 ABG 106 mmHg (85-108); SAT O2 ABG 98 % (92-99)
[2019-10-11 22:37] LABS: FIO2 ABG 21
[2019-10-11 23:03] VITALS: BP 91/50
[2019-10-11 23:15] LABS: BASO % 1 % (0-3); EOS # 0.1 x10^3/uL (0.0-0.7); EOS % 3 % (0-3); HEMOGLOBIN 11.7 g/dL (13.0-17.5); LYMPH # 2.7 x10^3/uL (1.0-4.8); LYMPH % 59 % (24-48); MEAN CORPUSCULAR HEMOGLOBIN 24 pg (25-35); MEAN CORPUSCULAR HGB CONC 33 g/dL (31-37); MEAN CORPUSCULAR VOLUME 73 fL (79-100); MONO # 0.3 x10^3/uL (0.0-1.1); MONO % 6 % (0-9); NEUT # 1.4 x10^3/uL (1.8-7.7); NEUT % 32 % (31-73); PLATELET COUNT 170 x10^3/uL (140-400); RED BLOOD COUNT 4.91 x10^6/uL (4.30-5.70); RED CELL DISTRIBUTION WIDTH 15.9 % (11.5-14.5); WHITE BLOOD COUNT 4.5 x10^3/uL (4.0-11.0)
[2019-10-11] MEDS ORDERED: IV NORMAL SALINE 1000ML BAG 1,000 ML IV ONE (23:15)
[2019-10-11 23:20] LABS: ACETAMIN < 2 mcg/ml (10-30); CALCIUM 8.6 mg/dL (8.5-10.1); CREATININE 0.8 mg/dL (0.7-1.3); ETHANOL 137 mg/dL (0-10); POTASSIUM 3.1 mmol/L (3.5-5.1); SALIC < 2.8 mg/dL (2.8-20.0)
[2019-10-11 23:22] LABS: ALBUMIN 3.8 g/dL (3.4-5.0); ALBUMIN/GLOBULIN RATIO 1.2 (1.0-1.7); TOTAL BILIRUBIN 0.5 mg/dL (0.2-1.0); TOTAL PROTEIN 6.9 g/dL (6.4-8.2)
[2019-10-11 23:29] LABS: % BANDS 1 % (0-9); % EOS 3 % (0-5); % LYMPHS 57 % (24-48); % MONOS 7 % (0-10); % SEGS 32 % (35-66)
[2019-10-11 23:32] LABS: PLT ESTIMATE ADEQUATE (ADEQUATE)
[2019-10-11 23:33] LABS: HYPOCHROMIA SLIGHT; MICROCYTOSIS MOD; OVALOCYTES FEW; SCHISTOCYTES FEW
[2019-10-11 23:58] LABS: BILIRUBIN,URINE NEGATIVE (NEG); CLARITY,URINE CLOUDY; COLOR,URINE YELLOW; NITRITE,URINE NEGATIVE (NEG); PROTEIN,URINE NEGATIVE (NEG-TRACE); UROBILINOGEN,URINE 0.2 mg/dL (0.2 mg/dL)
[2019-10-12 00:03] LABS: BACTERIA,URINE 0 /HPF (0-FEW); SQUAMOUS EPITHELIAL CELL,UR OCC /LPF; WBC,URINE OCC /HPF (0-4)
[2019-10-12 00:04] LABS: AMPHETAMINE/METHAMPHETAMINE NEG (NEG); BARBITURATES NEG (NEG); BENZODIAZEPINES NEG (NEG); CANNABINOIDS POS (NEG); COCAINE NEG (NEG); METHADONE NEG (NEG); OPIATES NEG (NEG); PHENCYCLIDINE NEG (NEG)
[2019-10-12] MEDS ORDERED: POTASSIUM CHLORIDE 20 MEQ TABLET.ER. PO ONE (00:30)
--- NOTE | 2019-10-12 07:42 | EKG ---
[facility] [address] [place] [address] Test Date: 2019-10-11 Test Time: 21:34:45 Pat Name: MIKE BARNARD Department: Room: Gender: M [employer] Representative: : 1995 Requested By: CATHI SCHNEIDER Order Number: [id number] Reading MD: Measurements Intervals [place] Rate: 65 P: 59 AR: 254 QRS: 87 QRSD: 94 T: 74 QT: 398 QTc: 415 Interpretive Statements SINUS RHYTHM PROLONGED AR INTERVAL INCOMPLETE RIGHT BUNDLE BRANCH BLOCK QRS(T) CONTOUR ABNORMALITY CONSIDER ANTEROLATERAL MYOCARDIAL DAMAGE ABNORMAL ECG RI6.01 No previous ECG available for comparison
== END 2019-10-12 00:45 | disposition home or self-care (01) ==
LOC: ER 21:19
DX: F10.920 Alcohol use, unspecified with intoxication, uncomplicated (principal); R41.82 Altered mental status, unspecified; E87.6 Hypokalemia; J42 Unspecified chronic bronchitis; F12.90 Cannabis use, unspecified, uncomplicated
CPT/HCPCS: 36415; 36600; 70450; 80053; 80307; 80329; 81001; 82140; 82805; 84484; 85007; 85025; 85379; 93005; 96360; 99285; G0480; J7030

== ENCOUNTER 2020-02-23 14:00 | Emergency (ER) | payer SELFPAY ==
[~2020-02-23] VITALS: Ht 188 cm; Wt 64.0 kg
[~2020-02-23 14:00] MED LIST changes: -LIDO15SO2 TOP; +LIDO20SO10 TOP
[2020-02-23 14:05] VITALS: BP 124/59
[2020-02-23] MEDS ORDERED: POLY10DR3 EACHEYE (14:16)
--- NOTE | 2020-02-23 14:17 | PHYS DOC ---
Past Medical History Past Medical History: No Pertinent History, Bronchitis Past Surgical History: No Surgical History Smoking Status: Current Every Day Smoker Alcohol Use: None Drug Use: Marijuana General Adult EDM: Chief Complaint: EYE PROBLEMS HPI: HPI: Patient is a 24 year old male who presents with Right eye itching, redness, and discharge since . States the right eye is now starting to do the same things. Denies eye pain, vision loss, fever, pain with eye movement. Review of Systems: Review of Systems: Eyes: Denies change in visual acuity. Eye redness and discharge. [] Heart Score: Risk Factors: Risk Factors: DM, Current or recent (<one month) smoker, HTN, HLP, family history of CAD, obesity. Risk Scores: Score 0 - 3: 2.5% MACE over next 6 weeks - Discharge Home Score 4 - 6: 20.3% MACE over next 6 weeks - Admit for Clinical Observation Score 7 - 10: 72.7% MACE over next 6 weeks - Early Invasive Strategies Allergies: Allergies: Allergies Coded Allergies Type Severity Reaction Last Updated Verified No Known Drug Allergies 02/28/15 No Physical Exam: PE: Constitutional: Well developed, well nourished, no acute distress, non-toxic appearance. [] HENT: Normocephalic, atraumatic, bilateral external ears normal, oropharynx moist, no oral exudates, nose normal. [] Eyes: PERRLA, EOMI, conjunctiva red, discharge. [] Neck: Normal range of motion, no tenderness, supple, no stridor. [] Cardiovascular:Heart rate regular rhythm, no murmur [] Lungs & Thorax: Bilateral breath sounds clear to auscultation [] Abdomen: Bowel sounds normal, soft, no tenderness, no masses, no pulsatile masses. [] Skin: Warm, dry, no erythema, no rash. [] Back: No tenderness, no CVA tenderness. [] Extremities: No tenderness, no cyanosis, no clubbing, ROM intact, no edema. [] Neurologic: Alert and oriented X 3, normal motor function, normal sensory function, no focal deficits noted. [] Psychologic: Affect normal, judgement normal, mood normal. [] EKG: EKG: [] Radiology/Procedures: Radiology/Procedures: [] Course & Med Decision Making: Course & Med Decision Making Pertinent Labs and Imaging studies reviewed. (See chart for details) Right conjunctiva redness with yellow clear discharge. 2+ swelling to the eye. No cellulitis. PERRLA. [] Rosio Disclaimer: Rosio Disclaimer: This electronic medical record was generated, in whole or in part, using a voice recognition dictation system. Departure Departure Impression: Primary Impression: Conjunctivitis Qualified Codes: H10.33 - Unspecified acute conjunctivitis, bilateral Disposition: HOME, SELF-CARE Condition: STABLE Referrals: NO PCP (PCP) Patient Instructions: Conjunctivitis (Viral and Bacterial) Additional Instructions: Use eye drops bilaterally as prescribed. Do not touch the tip of the medication tube to the eye as you can reinfect your eyes. Scripts Polymyxin B Sulf/Trimethoprim (POLYMYXIN B-TMP EYE DROPS) 10 Ml Drops 1 DROP EACHEYE QID for 7 Days, #10 ML 0 Refills Prov: RIGOBERTO REYES APRN 02/23/20 RIGOBERTO REYES APRN February 23, 2020 14:16
== END 2020-02-23 14:31 | disposition home or self-care (01) ==
LOC: ER 14:00
DX: H10.33 Unspecified acute conjunctivitis, bilateral (principal); F17.200 Nicotine dependence, unspecified, uncomplicated
CPT/HCPCS: 99283

== ENCOUNTER 2021-04-10 01:43 | Emergency (ER) | payer SELFPAY ==
[~2021-04-10] VITALS: Ht 182.9 cm; Wt 59.1 kg
[~2021-04-10 01:43] MED LIST changes: +POLY10DR3 EACHEYE
[2021-04-10] MEDS ORDERED: fentaNYL PF VIAL 100 MCG/2 ML VIAL IVP ONE ×2 (02:15→04:00)
[2021-04-10] MEDS ORDERED: fentaNYL PF VIAL 100 MCG/2 ML VIAL ONE (02:16)
--- NOTE | 2021-04-10 02:22 | ED.ADGEN ---
Past Medical History Past Medical History: No Pertinent History, Bronchitis Past Surgical History: No Surgical History Smoking Status: Current Every Day Smoker Alcohol Use: None Drug Use: Marijuana General Adult EDM: Chief Complaint: FLANK PAIN HPI: HPI: Patient is a 25 year old male coming in for left flank pain starting yesterday. Patient states the pain has become unbearable. Has a history of kidney stones states been having hematuria. Patient states that approximately 5 stones in the past but has never had to have intervention done. Otherwise has been well without any significant medical history. Review of Systems: Review of Systems: All other systems within normal limits except for as noted in the HPI Current Medications: Current Medications Medications (Trade) Dose Ordered Sig/Christy Start Time Stop Time Status Last Admin Dose Admin Fentanyl Citrate (Fentanyl 2ml Vial) 75 mcg 1X ONCE 04/10/21 04:00 04/10/21 04:01 DC 04/10/21 04:09 75 MCG Ketorolac Tromethamine (Toradol 15mg Vial) 15 mg 1X ONCE 04/10/21 02:30 04/10/21 02:31 DC 04/10/21 02:23 15 MG Ringer's Solution 500 ml @ 500 mls/hr 1X ONCE 04/10/21 03:30 04/10/21 04:29 DC 04/10/21 03:33 500 MLS/HR Allergies: Allergies: Allergies Coded Allergies Type Severity Reaction Last Updated Verified No Known Drug Allergies 02/28/15 No Physical Exam: PE: Constitutional: Well developed, well nourished, no acute distress, non-toxic appearance. [] HENT: Normocephalic, atraumatic, bilateral external ears normal, nose normal. [] Eyes: PERRLA, conjunctiva normal, no discharge. [] Neck: No rigidity, supple, no stridor. [] Cardiovascular: Regular rate and rhythm, brisk cap refill [] Lungs & Thorax: Non labored symmetric respirations, no tachypnea or respiratory distress [] Abdomen: Soft, nondistended. Skin: Warm, dry, no erythema, no rash. [] Back: Unremarkable Extremities: No deformities, range of motion grossly intact, no lower extremity edema [] Neurologic: Alert and oriented X 3, no focal deficits noted. [] Psychologic: Affect normal, judgement normal, mood normal. [] Current Patient Data: Labs: Laboratory Tests Test 04/10/21 02:12 White Blood Count 7.2 x10^3/uL (4.0-11.0) Red Blood Count 5.12 x10^6/uL (4.30-5.70) Hemoglobin 12.4 g/dL (13.0-17.5) L Hematocrit 38.7 % (39.0-53.0) L Mean Corpuscular Volume 76 fL (79-100) L Mean Corpuscular Hemoglobin 24 pg (25-35) L Mean Corpuscular Hemoglobin Concent 32 g/dL (31-37) Red Cell Distribution Width 16.9 % (11.5-14.5) H Platelet Count 183 x10^3/uL (140-400) Neutrophils (%) (Auto) 43 % (31-73) Lymphocytes (%) (Auto) 45 % (24-48) Monocytes (%) (Auto) 8 % (0-9) Eosinophils (%) (Auto) 3 % (0-3) Basophils (%) (Auto) 1 % (0-3) Neutrophils # (Auto) 3.1 x10^3/uL (1.8-7.7) Lymphocytes # (Auto) 3.2 x10^3/uL (1.0-4.8) Monocytes # (Auto) 0.6 x10^3/uL (0.0-1.1) Eosinophils # (Auto) 0.2 x10^3/uL (0.0-0.7) Basophils # (Auto) 0.1 x10^3/uL (0.0-0.2) Urine Collection Type Unknown Urine Color Red Urine Clarity Turbid Urine pH 5.5 (<5.0-8.0) Urine Specific [place] 1.025 (1.000-1.030) Urine Protein 100 mg/dL (NEG-TRACE) Urine Glucose (UA) Negative mg/dL (NEG) Urine Ketones (Stick) Trace mg/dL (NEG) Urine Blood Large (NEG) Urine Nitrite Negative (NEG) Urine Bilirubin Moderate (NEG) Urine Urobilinogen Dipstick 1.0 mg/dL (0.2 mg/dL) Urine Leukocyte Esterase Moderate (NEG) Urine RBC Tntc /HPF (0-2) Urine WBC 5-10 /HPF (0-4) Urine Squamous Epithelial Cells Occ /LPF Urine Bacteria 0 /HPF (0-FEW) Urine Mucus Mod /LPF Sodium Level 141 mmol/L (136-145) Potassium Level 4.0 mmol/L (3.5-5.1) Chloride Level 103 mmol/L (98-107) Carbon Dioxide Level 31 mmol/L (21-32) Anion Gap 7 (6-14) Blood Urea Nitrogen 10 mg/dL (8-26) Creatinine 1.0 mg/dL (0.7-1.3) Estimated GFR (Cockcroft-Gault) 110.2 BUN/Creatinine Ratio 10 (6-20) Glucose Level 82 mg/dL (70-99) Calcium Level 9.4 mg/dL (8.5-10.1) Total Bilirubin 0.5 mg/dL (0.2-1.0) Aspartate Amino Transferase (AST) 22 U/L (15-37) Alanine Aminotransferase (ALT) 7 U/L (16-63) L Alkaline Phosphatase 87 U/L (46-116) Total Protein 8.1 g/dL (6.4-8.2) Albumin 4.2 g/dL (3.4-5.0) Albumin/Globulin Ratio 1.1 (1.0-1.7) Laboratory Tests 04/10/21 02:12 Laboratory Tests 04/10/21 02:12 Vital Signs: Vital Signs Date Time Temp Pulse Resp B/P (MAP) Pulse Ox O2 Delivery O2 Flow Rate FiO2 04/10/21 04:39 20 99 Room Air 04/10/21 01:50 98.7 85 144/87 (80) 98.7 EKG: EKG: [] Heart Score: C/O Chest Pain: No Risk Factors: Risk Factors: DM, Current or recent (<one month) smoker, HTN, HLP, family history of CAD, obesity. Risk Scores: Score 0 - 3: 2.5% MACE over next 6 weeks - Discharge Home Score 4 - 6: 20.3% MACE over next 6 weeks - Admit for Clinical Observation Score 7 - 10: 72.7% MACE over next 6 weeks - Early Invasive Strategies Radiology/Procedures: Radiology/Procedures: [facility] [address] [place], [place] [id number] IMAGING REPORT Signed PATIENT: MIKE BARNARD ACCOUNT: [id number] : 1995 LOCATION: ER AGE: 25 SEX: M EXAM STATUS: REG ER ORD. PHYSICIAN: JUSTICE GUPTA MD REASON: stone study left PROCEDURE: CT ABDOMEN PELVIS WO CONTRAST INDICATION: Reason: stone study left / Spl. Instructions: / History: . Abdomen pain COMPARISON: December 2017 TECHNIQUE: Axial CT images obtained through the abdomen and pelvis without contrast. One or more of the following individualized dose reduction techniques were utilized for this examination: 1. Automated exposure control; 2. Adjustment of the mA and/or kV according to patient size; 3. Use of iterative reconstruction technique. FINDINGS: There is very little intra-abdominal fat as well as lack of intravenous and oral contrast limits this exam. The abdominal aorta is largely obscured. Liver is prominent in size. Poor evaluation of the pancreas without contrast. Spleen not enlarged. Left-sided hydronephrosis is identified as well as bilateral renal stones. Multiple calcifications in the pelvis including one near the expected location of the left distal ureter measuring approximately 3 mm. Urinary bladder is decompressed. 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 Appendix not well evaluated given lack of intravenous and oral contrast as well as lack of intra-abdominal fat. Mild scoliotic curvature of spine. Stomach is distended. IMPRESSION: * Left-sided hydronephrosis with suspected distal ureter stone. There are additional nonobstructive bilateral renal stones Electronically signed by: Oly Natarajan MD (04/10/2021 3:32 AM) [id number] DICTATED and SIGNED BY: OLY NATARAJAN MD DATE: 04/10/21 [id number] [] Course & Med Decision Making: Course & Med Decision Making Pertinent Labs and Imaging studies reviewed. (See chart for details) [] Dragon Disclaimer: Dragon Disclaimer: This electronic medical record was generated, in whole or in part, using a voice recognition dictation system. Departure Departure Impression: Primary Impression: Renal calculus, left Disposition: 01 HOME / SELF CARE / HOMELESS Condition: IMPROVED Referrals: NO PCP (PCP) Patient Instructions: Diet for Kidney Stones Scripts Hydrocodone Bit/Acetaminophen (HYDROCODONE-APAP 5-325 ) 1 Tab Tablet 1 TAB PO PRN Q6HRS PRN for PAIN for 3 Days, #10 TAB 0 Refills Prov: JUSTICE GUPTA MD 04/10/21 JUSTICE GUPTA MD Apr 10, 2021 02:22
[2021-04-10] MEDS ORDERED: KETOROLAC 15 MG/ML VIAL. IVP ONE (02:30)
[2021-04-10 02:31] LABS: BILIRUBIN,URINE MODERATE (NEG); CLARITY,URINE TURBID; COLOR,URINE RED; NITRITE,URINE NEGATIVE (NEG); PH,URINE 5.5 (<5.0-8.0); PROTEIN,URINE 100 mg/dL (NEG-TRACE)
[2021-04-10 02:38] LABS: BASO # 0.1 x10^3/uL (0.0-0.2); BASO % 1 % (0-3); EOS # 0.2 x10^3/uL (0.0-0.7); EOS % 3 % (0-3); HEMATOCRIT 38.7 % (39.0-53.0); HEMOGLOBIN 12.4 g/dL (13.0-17.5); LYMPH # 3.2 x10^3/uL (1.0-4.8); LYMPH % 45 % (24-48); MEAN CORPUSCULAR HEMOGLOBIN 24 pg (25-35); MEAN CORPUSCULAR HGB CONC 32 g/dL (31-37); MEAN CORPUSCULAR VOLUME 76 fL (79-100); MONO # 0.6 x10^3/uL (0.0-1.1); MONO % 8 % (0-9); NEUT # 3.1 x10^3/uL (1.8-7.7); NEUT % 43 % (31-73); PLATELET COUNT 183 x10^3/uL (140-400); RBC,URINE TNTC /HPF (0-2); RED BLOOD COUNT 5.12 x10^6/uL (4.30-5.70); RED CELL DISTRIBUTION WIDTH 16.9 % (11.5-14.5); WHITE BLOOD COUNT 7.2 x10^3/uL (4.0-11.0)
[2021-04-10 02:39] LABS: BACTERIA,URINE 0 /HPF (0-FEW)
[2021-04-10 02:47] LABS: CALCIUM 9.4 mg/dL (8.5-10.1); GFR 110.2
[2021-04-10 02:53] LABS: ALBUMIN 4.2 g/dL (3.4-5.0); ALBUMIN/GLOBULIN RATIO 1.1 (1.0-1.7); TOTAL BILIRUBIN 0.5 mg/dL (0.2-1.0); TOTAL PROTEIN 8.1 g/dL (6.4-8.2)
[2021-04-10] MEDS ORDERED: IV RINGERS,LACTATED 500ML 500 ML IV ONE (03:30)
--- NOTE | 2021-04-10 03:35 | RAD ---
INDICATION: Reason: stone study left / Spl. Instructions: / History: . Abdomen pain COMPARISON: December 2017 TECHNIQUE: Axial CT images obtained through the abdomen and pelvis without contrast. One or more of the following individualized dose reduction techniques were utilized for this examinat ion: 1. Automated exposure control; 2. Adjustment of the mA and/or kV according to patient size; 3 . Use of iterative reconstruction technique. FINDINGS: There is very little intra-abdominal fat as well as lack of intravenous and oral contrast limits this exam. The abdominal aorta is largely obscured. Liver is prominent in size. Poor evaluation of the pancreas without contrast. Spleen not enlarged. Left-sided hydronephrosis is identified as well as bilateral renal stones. Multiple calcifications in the pelvis including one near the expected location of the left distal ureter measuring approximatel y 3 mm. Urinary bladder is decompressed. 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 Appendix not well evaluated given lack of intravenous and oral contrast as well as lack of intra-abdo jessica fat. Mild scoliotic curvature of spine. Stomach is distended. IMPRESSION: * Left-sided hydronephrosis with suspected distal ureter stone. There are additional nonobstructive bilateral renal stones Electronically signed by: Maxwell Natarajan MD (04/10/2021 3:32 AM) [id number]
[2021-04-10] MEDS ORDERED: HYDR-2761 PO (04:44)
[2021-04-10 05:00] VITALS: BP 130/76
[2021-04-10] MEDS ORDERED: HYDROcodone/APAP 5/325MG 1 TAB TABLET PO ONE (05:00)
== END 2021-04-10 05:04 | disposition home or self-care (01) ==
LOC: ER 01:43
DX: N13.2 Hydronephrosis with renal and ureteral calculous obstruction (principal); F17.200 Nicotine dependence, unspecified, uncomplicated
CPT/HCPCS: 36415; 74176; 80053; 81001; 85025; 87086; 96361; 96374; 96375; 96376; 99284; J1885; J3010; J7120

== ENCOUNTER 2021-06-28 14:54 | Emergency (ER) | payer OTHER ==
[~2021-06-28] VITALS: Ht 182.9 cm; Wt 59.5 kg
[~2021-06-28 14:54] MED LIST changes: +HYDR-2761 PO
[2021-06-28 16:20] VITALS: BP 120/62
--- NOTE | 2021-06-28 16:49 | RAD ---
AP lateral and oblique views of the left foot and left ankle no comparison. INDICATION: Foot and ankle pain. FINDINGS: No fracture subluxation dislocation. There is normal bony mineralization. Bones midfoot are aligned. No significant degenerative change. Electronically signed by: Shiavm Murcia MD (06/28/2021 4:46 PM) [facility]
--- NOTE | 2021-06-28 16:49 | RAD ---
AP lateral and oblique views of the left foot and left ankle no comparison. INDICATION: Foot and ankle pain. FINDINGS: No fracture subluxation dislocation. There is normal bony mineralization. Bones midfoot are aligned. No significant degenerative change. Electronically signed by: Shivam Murcia MD (06/28/2021 4:46 PM) [facility]
--- NOTE | 2021-06-28 16:52 | PHYS DOC ---
Past Medical History Past Medical History: No Pertinent History, Bronchitis Past Surgical History: No Surgical History Smoking Status: Current Every Day Smoker Alcohol Use: None Drug Use: Marijuana General Adult EDM: Chief Complaint: FOOT INJURY PAIN HPI: HPI: 25-year-old -[place] male with no significant past medical history presents the ED with complaints of left foot pain and anterior ankle pain that started at 1:45 PM today after a forklift rolled on top of the foot and then backed off. Patient reports his tetanus is up-to-date. Pain is worsened with any ankle range of motion and weightbearing. No prior injury to this joint. Takes no routine medications. Is no PCP. Denies been under the signs of any alcohol or drugs today. Did not fall or hit his head. Reports his tetanus is up-to-date. Review of Systems: Review of Systems: Constitutional: Denies fever or chills. [] Eyes: Denies change in visual acuity. [] HENT: Denies nasal congestion or sore throat. [] Respiratory: Denies cough or shortness of breath. [] Cardiovascular: Denies chest pain or edema. [] GI: Denies nausea or vomiting Musculoskeletal: Denies back pain, knee or hip pain Integument: Denies desquamation or blistering lesions Neurologic: Denies headache, focal weakness or sensory changes. [] Psychiatric: Denies depression or anxiety. [] Heart Score: C/O Chest Pain: No Risk Factors: Risk Factors: DM, Current or recent (<one month) smoker, HTN, HLP, family history of CAD, obesity. Risk Scores: Score 0 - 3: 2.5% MACE over next 6 weeks - Discharge Home Score 4 - 6: 20.3% MACE over next 6 weeks - Admit for Clinical Observation Score 7 - 10: 72.7% MACE over next 6 weeks - Early Invasive Strategies Allergies: Allergies: Allergies Coded Allergies Type Severity Reaction Last Updated Verified No Known Drug Allergies 02/28/15 No Physical Exam: PE: Constitutional: Well developed, well nourished, no acute distress, non-toxic appearance. HENT: Normocephalic, atraumatic, Eyes: EOMI, conjunctiva normal, no discharge. Neck: Normal range of motion, supple, Cardiovascular: S1/2 present, regular rhythm Lungs & Thorax: Speaking in full sentences, bilateral equal chest rise, no tachypnea or increased work of breathing Skin: Warm, dry, no erythema, no rash. [] Extremities: ttp over anterior ankle with bruising/mild swelling and < 1cm abrasion/no active bleeding, able to dorsiflex and plantarflex left ankle, no plantar ecchymosis sign, intact left DP/PT pulses, cap refill less than 1 second, no cyanosis, Neurologic: Alert and oriented X 3, normal motor function, normal sensory function, no focal deficits noted, L5/S1 sensation intact Psychologic: Affect normal, judgement normal, mood normal. [] Current Patient Data: Vital Signs: Vital Signs Date Time Temp Pulse Resp B/P (MAP) Pulse Ox O2 Delivery O2 Flow Rate FiO2 06/28/21 16:20 99.0 68 18 120/62 (81) 98 Room Air 99.0 EKG: EKG: [] Radiology/Procedures: Radiology/Procedures: IMAGING REPORT Signed PATIENT: MIKE HEADLEY LACCOUNT: [id number] : 1995 LOCATION: ER AGE: 25 SEX: M EXAM STATUS: PRE ER ORD. PHYSICIAN: J CARLOS CYR DO REASON: left foot pain PROCEDURE: FOOT LEFT 3V AP lateral and oblique views of the left foot and left ankle no comparison. INDICATION: Foot and ankle pain. FINDINGS: No fracture subluxation dislocation. There is normal bony mineralization. Bones midfoot are aligned. No significant degenerative change. Electronically signed by: Shivam Murcia MD (06/28/2021 4:46 PM) [facility] DICTATED and SIGNED BY: SHIVAM MURCIA MD DATE: 06/28/21 [id number] 0 Course & Med Decision Making: Course & Med Decision Making Pertinent Labs and Imaging studies reviewed. (See chart for details) Concern for blunt injury to left ankle and foot with contusion and mild swelling, cannot exclude occult fracture or ligamentous injury. Patient reports tetanus is up-to-date. Will apply splint and crutches with rice instructions and [id number] analgesia. Patient with no knee/fibular head or hip pain. Patient's father will drive him home. Will discharge home with strict ED return precautions were given for severe pain, skin, changes, neurologic deficits or repeat injury. Encouraged urgent outpatient follow-up with PMD and orthopedic surgery. Life-threatening processes were considered but are low suspicion at this time, given history, physical exam and ED workup. Pt was educated on all prescription medications and adverse effects. All patient's questions were answered and pt was stable at time of discharge. Life/limb-threatening differential includes but is not limited to, avascular necrosis, septic arthritis, malignancy, compartment syndrome, fracture/ligamentous injury/overuse, decompression sickness, seronegative spondyloarthropathies, trauma including dislocation/fracture, Lyme disease, lupus, arthritis differentials, gout/pseudogout or decompression sickness. I have spoken with the patient and/or caregivers. I explained the patient's condition, diagnoses and treatment plan based on the information available to me at this time. I have answered the patient and/or caregiver's questions and addressed any concerns. The patient and/or caregivers have a good understanding of patient's diagnosis, condition and treatment plan as can be expected at this point. Vital signs have been stable. Patient's condition is stable and appropriate for discharge from the emergency department. Patient will pursue further outpatient evaluation with primary care physician or other designated or consulting physician as outlined in the discharge instructions. The patient and/or caregivers are agreeable to this plan of care and follow-up instructions have been explained in detail. The patient and/or caregivers have received these instructions in written form and have expressed an understanding of the discharge instructions. The patient and/or caregivers are aware that any significant change of condition or worsening of symptoms should prompt immediate return to this or the closest emergency department or call to 911. Rosio Disclaimer: Rosio Disclaimer: This electronic medical record was generated, in whole or in part, using a voice recognition dictation system. Departure Departure Impression: Primary Impression: Contusion of left foot Additional Impressions: Injury of foot, left Abrasion of skin Disposition: 01 HOME / SELF CARE / HOMELESS Condition: STABLE Referrals: NO PCP (PCP) Follow-up with your primary care physician in 24 to 48 hours OR FOLLOW UP WITH FAMILY MEDICINE: [address], [address] [place] [address] Patient Instructions: Ankle Sprain, Foot Contusion, RICE - Routine Care for Injuries Additional Instructions: FOLLOW UP WITH ORTHOPEDICS: FOR DEFINITIVE MANAGEMENT within the next 7 days for reevaluation Orthopaedic Surgery [address] [facility] [place] [address] EMERGENCY DEPARTMENT GENERAL DISCHARGE INSTRUCTIONS Thank you for coming to [facility] Emergency Department (ED) today and trusting us with you care. We trust that you had a positive experience in our Emergency Department. If you wish to speak to the department management, you may call the Director at [phone]. YOUR FOLLOW UP INSTRUCTIONS ARE FOLLOWS: 1. Do you have a private Doctor? If you do not have a private doctor, please ask for a resource list of physicians or clinics that may be able to assist you with follow up care. 2. The Emergency Physicain has interpreted your x-rays. The X-Ray specialist will also review them. If there is a change in the findings, you will be notified in 48 hours when at all possible. 3. A lab test or culture has been done, your results will be reviewed and you will be notified if you need a change in treatment. ADDITIONAL INSTRUCTIONS AND INFORMATION: 1. Your care today has been supervised by a physician who is specially trained in emergency care. Many problems require more than one evaluation for a complete diagnosis and treatment. We recommend that you schedule your follow up appointment as recommended to ensure complete treatment of you illness or injury. If you are unable to obtain follow up care and continue to have a problem, or if your condition worsens, we recommend that you return to the ED. 2. We are not able to safely determine your condition over the phone nor are we able to give sound medical advice over the phone. For these safety reasons, if you call for medical advice we will ask you to come to the ED for further evaluation. 3. If you have any questions regarding these discharge instructions please call the ED at [phone]. SAFETY INFORMATION: In the interest of safety, wellness, and injury prevention; we encourage you to wear your sealbelt, if you smoke; quite smoking, and we encourage family to use a protective helmet for bicycling and other sporting events that present an increased risk for head injury. IF YOUR SYMPTOMS WORSEN OR NEW SYMPTOMS DEVELOP, OR YOU HAVE CONCERNS ABOUT YOUR CONDITION; OR IF YOUR CONDITION WORSENS WHILE YOU ARE WAITING FOR YOUR FOLLOW UP APPOINTMENT; EITHER CONTACT YOUR PRIMARY CARE DOCTOR, THE PHYSICIAN WHOSE NAME AND NUMBER YOU WERE GIVEN, OR RETURN TO THE ED IMMEDIATELY. [facility] DO Jun 28, 2021 16:52
[2021-06-28] MEDS ORDERED: HYDROcodone/APAP 5/325MG 1 TAB TABLET PO ONE (18:00)
== END 2021-06-28 18:34 | disposition home or self-care (01) ==
LOC: ER 14:54
DX: S90.32XA Contusion of left foot, initial encounter (principal); F17.200 Nicotine dependence, unspecified, uncomplicated; X50.9XXA Other and unspecified overexertion or strenuous movements or postures, initial encounter; Y93.89 Activity, other specified; Y92.89 Other specified places as the place of occurrence of the external cause; Y99.8 Other external cause status
CPT/HCPCS: 73610; 73630; 99283; 99284